=== PATIENT | male | born 1960 | race Caucasian/White ===

== ENCOUNTER 2021-01-27 17:00 | Emergency (ER) | payer MEDICAID ==
[~2021-01-27] VITALS: Ht 167.6 cm; Wt 97.0 kg
[2021-01-27] MEDS ORDERED: MECLIZINE 25MG TABLET PO ONE (19:00)
[2021-01-27 19:45] LABS: BASOPHILS % 0.8 % (0.0-2.0); EOSINOPHILS % 3.1 % (0.0-5.0); HEMATOCRIT. 45.5 % (42.0-52.0); HEMOGLOBIN. 15.9 g/dL (14.0-18.0); LYMPHOCYTES % 26.8 % (20.0-50.0); MEAN CORPUSCULAR HEMOGLOBIN 31.8 pg (28.0-32.0); MEAN PLATELET VOLUME 7.7 fl (7.4-10.4); MONOCYTES % 6.5 % (2.0-8.0); NEUTROPHILS % 62.8 % (40.0-76.0); PLATELET 230 x1000/uL (130-400); RED CELL DISTRIBUTION WIDTH 13.3 % (11.6-14.6)
[2021-01-27 19:50] LABS: CHLORIDE 107 mEq/L (98-107)
[2021-01-27 19:53] LABS: ETHANOL BLOOD < 10 mg/dL
[2021-01-27 19:55] LABS: PROTHROMBIN TIME 11.1 sec (9.6-11.0)
[2021-01-27 21:30] VITALS: BP 130/87
== END 2021-01-27 21:41 | disposition left against medical advice (07) ==
LOC: ER 17:00 → CANBEDREQ 22:44
DX: R42 Dizziness and giddiness (principal); R26.89 Other abnormalities of gait and mobility; I10 Essential (primary) hypertension; I49.9 Cardiac arrhythmia, unspecified; E78.00 Pure hypercholesterolemia, unspecified
CPT/HCPCS: 36415; 70450; 70544; 70553; 71045; 80053; 80320; 83880; 84484; 85025; 85610; 93005; 99285; J8597; G0480

== ENCOUNTER 2021-01-28 08:38 | Emergency (ER) | payer MEDICAID ==
[~2021-01-28] VITALS: Ht 175.3 cm; Wt 97.0 kg
[2021-01-28 10:10] VITALS: BP 141/79
== END 2021-01-28 10:10 | disposition home or self-care (01) ==
LOC: ER 08:54
DX: Z13.9 Encounter for screening, unspecified (principal); I10 Essential (primary) hypertension; E78.00 Pure hypercholesterolemia, unspecified; Z53.29 Procedure and treatment not carried out because of patient's decision for other reasons
CPT/HCPCS: 99281